=== PATIENT | female | born 1950 | race Caucasian/White ===

== ENCOUNTER 2016-09-20 09:23 | Outpatient (CLI) | payer BC, OTHER | END 2016-09-20 11:23 | LOC: D.MAMMO 09:23 | DX: Z12.31 Encounter for screening mammogram for malignant neoplasm of breast (principal) ==

== ENCOUNTER → 2018-01-15 17:01 | Outpatient (CLI) | payer BC, OTHER | END | disposition home or self-care (01) | LOC: D.MAMMO 16:15 | DX: Z12.31 Encounter for screening mammogram for malignant neoplasm of breast (principal) ==

== ENCOUNTER 2019-01-16 08:00 | Outpatient (CLI) | payer BC, MEDICARE, OTHER | END 2019-01-16 12:00 | disposition home or self-care (01) | LOC: D.MAMMO 08:00 | PROVIDERS: ATTEND Family Medicine | DX: Z12.31 Encounter for screening mammogram for malignant neoplasm of breast (principal) ==

== ENCOUNTER → 2019-02-03 08:00 | Outpatient (CLI) | payer BC, MEDICARE, OTHER | END | disposition home or self-care (01) | LOC: D.MAMMO 08:00 | PROVIDERS: ATTEND Family Medicine | DX: R92.8 Other abnormal and inconclusive findings on diagnostic imaging of breast (principal) ==

== ENCOUNTER → 2019-05-07 10:25 | Outpatient (CLI) | payer BC, MEDICARE, OTHER | END | disposition home or self-care (01) | LOC: D.HCCARDIO 10:25 | PROVIDERS: ATTEND Internal Medicine Cardiovascular Disease | DX: R00.2 Palpitations (principal) ==

== ENCOUNTER 2020-08-23 11:42 | Inpatient (IN) | payer MEDICARE, OTHER ==
[~2020-08-23] VITALS: Ht 160 cm; Wt 94.1 kg
[~2020-08-23 11:42] MED LIST: BENICAR20 MG PO; CRESTOR10 MG PO; GLUCOPHAGE500 MG PO; PROTONIX40 MG PO; TOPROL XL100 MG PO; XARELTO20 MG PO
--- NOTE | 2020-08-23 12:00 | NUR ---
RECIEVED PATIENT FROM HER MD OFFICE. PATIENT IS AWAKE, ALERT AND ORIENTED. SHES AMBULATORY WITHOUT ASSISTANCE OF ANY KIND. PLAN OF CARE REVIEWED AND ASSESSMENT HAS BEEN COMPLETED. PATIENT DENIES PAIN AT THIS TIME. NURSE STARTS AN IV TO HER RIGHT HAND, WITH NS AT 75. INTERMITTENT IV ANTIBIOTICS. PATIENT DENIES NEEDS. CALL LIGHT IN REACH.
[2020-08-23 12:13] VITALS: Ht 160 cm; Wt 94.1 kg
[2020-08-23 12:37] VITALS: BP 116/55
[2020-08-23] MEDS ORDERED: ZYRTEC10 MG PO (12:56)
[2020-08-23 12:57] VITALS: BP 110/82
[2020-08-23] MEDS ORDERED: DILTIAZEM 24HR120 M3 PO (12:57)
[2020-08-23] MEDS ORDERED: MAG-OX 400 MG400 MG PO (13:00)
[2020-08-23 15:47] VITALS: BP 130/63
--- NOTE | 2020-08-23 19:05 | NUR ---
pt awake alert lying in bed, PIV infusing to right hand. pt denies any needs. no acute distress. will continue to monitor
[2020-08-23 23:13] VITALS: BP 119/59
[2020-08-24 01:35] VITALS: BP 115/49
[2020-08-24 05:57] VITALS: BP 97/53
[2020-08-24 06:12] LABS: BASOPHILS 0.1 % (0-2); EOSINOPHILS 0.6 % (0-7); HEMATOCRIT 38.7 % (36.0-48.0); HEMOGLOBIN 12.5 g/dL (12-16); IMMATURE GRANULOCYTES 0.2 % (0-5); LYMPHOCYTES 23.7 % (15-50); MCH 29.8 pg (26.0-34.0); MCHC 32.3 g/dL (31.0-37.0); MCV 92.1 fL (80.0-100.0); MEAN PLATELET VOLUME 10.1 fL (7.4-10.4); MONOCYTES 5.6 % (2-11); NEUTROPHIL ABS# 7.38 10x3/uL (1.56-6.13); NEUTROPHILS 69.8 % (40-80); PLATELET COUNT 278 10x3/uL (130-400); RDW 13.4 % (11.5-14.5); WBC 10.6 10x3/uL (4.8-10.8)
[2020-08-24 06:25] LABS: CALC OSMOLALITY 282 mosm/kg (275-300); CALCIUM 8.3 mg/dL (8.5-10.1); CARBON DIOXIDE 26.8 mmol/L (21.0-32.0); CHLORIDE - SERUM 106 mmol/L (98-107); CREATININE - SERUM 0.8 mg/dL (0.6-1.3); GLUCOSE 156 mg/dL (74-106); POTASSIUM - SERUM 4.1 mmol/L (3.5-5.1); SODIUM 141 mmol/L (136-145); UREA NITROGEN 11 mg/dL (7-18); eGFR NON AFRICAN AMERICAN 75 mL/min (90-120)
[2020-08-24 08:00] VITALS: BP 106/51
[2020-08-24 12:19] VITALS: BP 117/52
[2020-08-24 16:07] VITALS: BP 106/57
--- NOTE | 2020-08-24 19:15 | NUR ---
RECEIVED BEDSIDE REPORT. ROUNDING COMPLETE. PATIENT IS ALERT AND ORIENTED, RESTING COMFORTABLY IN BED. RESPIRATIONS ARE EVEN AND UNLABORED. NO S/S OF DISTRESS. NO C/O PAIN. NEEDS MET. WILL CPOC.
[2020-08-24 20:21] VITALS: BP 126/59
[2020-08-25 01:37] VITALS: BP 117/52
[2020-08-25 04:49] VITALS: BP 105/59
[2020-08-25 05:48] LABS: BASOPHILS 0.2 % (0-2); EOSINOPHILS 1.6 % (0-7); HEMOGLOBIN 12.7 g/dL (12-16); IMMATURE GRANULOCYTES 0.3 % (0-5); LYMPHOCYTE ABS# 3.42 10x3/uL (1.18-3.74); LYMPHOCYTES 34.9 % (15-50); MCH 29.7 pg (26.0-34.0); MCHC 31.8 g/dL (31.0-37.0); MCV 93.5 fL (80.0-100.0); MEAN PLATELET VOLUME 10.6 fL (7.4-10.4); MONOCYTES 7.9 % (2-11); NEUTROPHIL ABS# 5.39 10x3/uL (1.56-6.13); NEUTROPHILS 55.1 % (40-80); PLATELET COUNT 286 10x3/uL (130-400); RBC 4.28 10x6/uL (4.00-5.40); RDW 13.5 % (11.5-14.5); WBC 9.8 10x3/uL (4.8-10.8)
[2020-08-25 06:08] LABS: CALC OSMOLALITY 284 mosm/kg (275-300); CALCIUM 8.6 mg/dL (8.5-10.1); CARBON DIOXIDE 30.5 mmol/L (21.0-32.0); CHLORIDE - SERUM 106 mmol/L (98-107); CREATININE - SERUM 0.8 mg/dL (0.6-1.3); GLUCOSE 134 mg/dL (74-106); POTASSIUM - SERUM 4.3 mmol/L (3.5-5.1); SODIUM 142 mmol/L (136-145); UREA NITROGEN 13 mg/dL (7-18); eGFR NON AFRICAN AMERICAN 75 mL/min (90-120)
[2020-08-25] MEDS ORDERED: COLACE100 MG PO (07:34)
[2020-08-25] MEDS ORDERED: LEVOFLOXACIN500 MG PO (07:35)
[2020-08-25] MEDS ORDERED: FLAGYL500 MG PO (07:36)
[2020-08-25] MEDS ORDERED: ZOFRAN4 MG PO (07:37)
--- NOTE | 2020-08-25 07:53 | HP ---
PATIENT: RY MEDRANO MEDICAL RECORD: [id number] ACCOUNT: [id number] LOCATION:D. [address].2106 : 51 ADMISSION DATE: 08/23/20 PCP: ALEE MONTEZ MD HISTORY AND PHYSICAL EXAMINATION REASON FOR ADMISSION : Left lower quadrant abdominal pain. HISTORY OF PRESENT ILLNESS: The patient is a 70-year-old female metabolic syndrome patient who has no history of fairly severe sigmoid and descending colon diverticulosis. Last colonoscopy was in 2019, shows benign polyps as well. She presented to my office about a week ago with onset of vague left lower quadrant abdominal pain and constipation. She clinically had diverticulitis and was placed on Cipro 500 mg b.i.d., but deferred Flagyl. She initially improved, did not have fever, but went to a family retreat, ate more than usual and developed increasing pain, very severe last night. Did not have fever, but had some sweats and said the pain was very uncomfortable. Came to the office this morning for this reason. It was exquisitely tender suprapubically in left lower quadrant and left upper quadrant. White count was over 15,000, so she is now admitted for acute diverticulitis. Denies nausea or vomiting. Stools have been small caliber. PAST MEDICAL HISTORY: Type 2 diabetes mellitus, well controlled. 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 PAST SURGICAL HISTORY: She has had hysterectomy, appendectomy, breast biopsy that was benign, cholecystectomy, tubal ligation, cardiac ablation times 2 for atrial fibrillation and arthroscopy of knee. HOME MEDICATIONS: Claritin 10 mg a day, metoprolol ER 50 mg daily, Benicar 20 mg a day, metformin 500 mg b.i.d., Rybelsus 3 mg tablets one daily, diltiazem ER 120 mg daily, Xarelto 20 mg a day, pantoprazole 40 mg a day, Crestor 10 mg daily. FAMILY HISTORY: Noncontributory. SOCIAL HISTORY: She is , former [employer], retired recently. She smoked in the past, none recently. Does not drink alcohol heavily. REVIEW OF SYSTEMS: GENERAL: Has not felt well the last 2 days. Has not had fever. Did have some night sweats. HEENT: No recent visual change, sinus congestion or sore throat. RESPIRATORY: No severe cough. CARDIAC: No exertional chest pain, palpitations, claudication or edema. GASTROINTESTINAL: Has had no nausea. Had decreased appetite. Has had increasing abdominal pain as mentioned in the left lower quadrant suprapubically and left upper quadrant. Stools have been small caliber and somewhat constipated. GYNECOLOGIC: No vaginal bleeding. GENITOURINARY: No incontinence or dysuria. MUSCULOSKELETAL: Has arthritis in her knee, but no recent sciatica symptoms. INTEGUMENT: No rash or itching. PSYCHIATRIC: Denies depressed mood. HISTORY AND PHYSICAL [id number] RY MEDRANO PHYSICAL EXAMINATION: VITAL SIGNS: Height is 5 feet 3 inches, weight is 207, temperature 98.3 Fahrenheit orally, pulse 55 and regular, respirations are 16, blood pressure 116/55 with a sat of 90% on room air. HEENT: Normocephalic. Eyes are clear. NECK: No bruits or masses. CHEST: Clear. CARDIOVASCULAR: Regular, without murmur. ABDOMEN: Mildly obese, very tender suprapubically in left lower quadrant, left upper quadrant. Bowel sounds are hypoactive. No rebound. No ecchymosis noted. GYNECOLOGIC: Deferred. EXTREMITIES: No CCE. NEUROLOGICAL: Oriented to person, place, time. Cranial nerves intact. Gait normal. Memory intact. LABORATORY AND DIAGNOSTIC DATA: White count is 15,000 with a normal H&H and BMP. CT scan of the abdomen shows early left sigmoid diverticulitis, some mild atherosclerotic calcifications in the femoral arteries bilaterally. IMPRESSION: 1. Acute sigmoid diverticulitis, failing outpatient therapy. 2. Sigmoid and descending colon diverticulosis, moderately severe. 3. History of benign colon polyps. 4. Adult onset diabetes mellitus, well controlled. 5. Hypertension, controlled. 6. Hyperlipidemia, controlled. 7. Exogenous obesity, allergic rhinitis. PLAN: The patient will be admitted for IV antibiotics, liquid diet. Further workup pending clinical response. TRANSINT:[id number] Voice Confirmation ID: [id number] DOCUMENT ID: [id number] ALEE MONTEZ MD at 0753 CC: [id number] DICTATION DATE: 08/23/201716 EDUCATIONAL PSYCHOLOGY TEACHER: 08/23/20 175 ADM IN [facility] [address] [place] [address]
--- NOTE | 2020-08-25 09:12 | NUR ---
DISCHARGE INSTRUCTIONS REVIEWED WITH PATIENT AT THIS TIME. NO QUESTIONS/CONCERNS. IV REMOVED. CATH TIP INTACT. NAD NOTED.
--- NOTE | 2020-08-25 09:12 | NUR ---
NURSE CALLS PATIENT'S PRESCRIPTIONS IN TO [facility] ON [address] AT THIS TIME
--- NOTE | 2020-08-25 09:33 | NUR ---
NURSE WHEELS PATIENT OUT. DRIVES IN PERSONAL VEHICLE. NAD NOTED. PERSONAL BELONGINGS IN HAND.
== END 2020-08-25 09:33 | disposition home or self-care (01) | DRG 392 ==
LOC: D.M2 11:42
PROVIDERS: ADMIT Family Medicine; ATTEND Family Medicine
DX: K57.92 Diverticulitis of intestine, part unspecified, without perforation or abscess without bleeding (principal); E11.65 Type 2 diabetes mellitus with hyperglycemia; I48.0 Paroxysmal atrial fibrillation; M19.90 Unspecified osteoarthritis, unspecified site; E78.5 Hyperlipidemia, unspecified; I10 Essential (primary) hypertension